=== PATIENT | male | born 2000 | race Caucasian/White ===

== ENCOUNTER 2022-01-13 09:53 | Outpatient (CLI) | payer OTHER, SELFPAY ==
--- NOTE | 2022-01-13 10:00 | CRLHL7_ITS ---
For Patients: As a result of the Cures Act, medical imaging exams and procedure reports are released immediately into your electronic medical record. You may view this report before your referring provider. If you have questions, please contact your health care provider. Indication: CHRONIC Sinusitis, CONGESTION AND STUFFY NOSE FOR MONTHS Technique: Performed without IV contrast Comparison: 01/07/2021 Findings: Frontal sinuses: Near complete opacification of the left frontal sinus. Moderate opacification right frontal sinus. Ethmoid sinuses: Moderate opacification of both ethmoid sinuses. Maxillary sinuses: Complete/near-complete opacification both maxillary sinuses with obstruction of the ostiomeatal complexes. Sphenoid sinuses: Complete/near complete opacification of both sphenoid sinuses with obstruction of the sinus drainage pathways. Nasal Cavity: Leftward curvature nasal septum. Soft tissue density within the left nasopharynx with associated turbinate mucosal hypertrophy. No TMJ abnormalities identified. The visualized portions of the orbits, intracranial contents and upper soft tissue neck are grossly negative. Impression: 1. Severe bilateral sinus disease progressed since the prior study with obstruction of the sinus drainage pathways. 2. Mucus within the left nasal cavity with possible polyps. Please note that all CT scans at this facility use dose modulation, iterative reconstruction, and/or weight-based dosing when appropriate to reduce radiation dose to as low as reasonably achievable. Dictated by Glenn Cash MD @ 01/13/2022 10:52:39 AM (Electronically Signed)
== END 2022-01-13 09:54 | disposition home or self-care (01) ==
LOC: CT 09:58
PROVIDERS: Visit Provider Otolaryngology
DX: J32.9 Chronic sinusitis, unspecified (principal)
CPT/HCPCS: 70486